=== PATIENT | male | born 1945 | race Caucasian/White ===

== ENCOUNTER 2016-07-31 10:47 | Emergency (ER) | payer MEDICARE ==
[2016-07-31 10:59] VITALS: TEMP 97.9; BMI 28.5
[2016-07-31 12:25] LABS: AUTOMATED BASOPHIL 0.4 % (0-2); AUTOMATED EOSINOPHIL 0.2 % (0-5); AUTOMATED LYMPH 8.4 % (17-44); AUTOMATED MONOCYTE 6.9 % (3-10); AUTOMATED NEUTROPHIL 84.1 % (45-76); MPV 8.7 fL (7.4-10.4)
[2016-07-31 12:33] LABS: LEUKOCYTES/URINE NEG (NEGATIVE); NITRITE/URINE NEG (NEGATIVE); RBC/URINE 0-2 (0-2); URINE OCCULT BLOOD NEG (NEG/TRACE)
[2016-07-31 12:35] LABS: BLOOD UREA NITROGEN 18 MG/DL (9-20); CALCIUM 9.5 MG/DL (8.4-10.2); CALCULATED OSMOLALITY 269 MOs/Kg (270-290); CHLORIDE 99 mEq/L (98-107); GLUCOSE 123 MG/DL (70-99); SODIUM LEVEL 138 mEq/L (137-146); TOTAL PROTEIN 8.6 G/DL (6.3-8.2)
--- NOTE | 2016-07-31 13:11 | EDPRACDOC ---
- General Information Chief Complaint: Male Urogenital Problems Stated Complaint: LOWER ABD PAIN Time Seen by Provider: 07/31/16 11:21 Information Source: Patient Home Medications: Home Medications Ascorbic Acid [Vitamin C] 1,000 mg PO DAILY 07/31/16 Aspirin (Enteric Coated) [Ecotrin] 81 mg PO DAILY 07/31/16 Multivitamin [One Daily] 1 tab PO DAILY 07/31/16 Pravastatin Sodium 20 mg PO QHS 07/31/16 Allergies/Adverse Reactions: Allergies Allergy/AdvReac Type Severity Reaction Status Date / Time No Known Allergies Allergy Unverified 07/31/16 12:21 - History of Present Illness HPI: C/o not being able to pee x 3 days except for a little dribbling. New onset, no blood noticed. No pain, just some pressure in pubic area. Denies fever, sob, cp , N/V/D, testicle or penis pain. Med hx = COPD, BPH Onset: 3 days Urinary Pain Location: Reports: Suprapubic Symptom Onset: Reports: Sudden Pain Severity: Moderate Pain Quality: Denies: Aching, N, Burning, Colicky, Cramping, Sharp, Stabbing, Knife-like, O History of: Reports: BPH Oral Intake: Normal Urinary Output: Decreased Associated Signs and Symptoms: Reports: None ED Past Medical History - History Reviewed Yes Nurses notes reviewed and agree except as marked - Patient Medical History Cardiac History: Reports: Hypercholesterolemia Psychological History: Denies: Depression - Social Medical History Smoking Status: Never smoker EDM Review of Systems - Review of Systems ROS Negative Except as Marked: Yes All systems reviewed and were negative except as marked Genitourinary: Dysuria - Physical Exam Constitutional: Alert Oriented to: Time, Person, Place Last recorded Vital Signs: Last Vital Signs Temp 97.9 F 07/31/16 10:54 Pulse 83 07/31/16 11:55 Resp 18 07/31/16 11:55 BP 146/68 07/31/16 11:55 Pulse Ox 94 07/31/16 11:55 Oxygen Pulse Oxygen Saturation 94 O2 Device Room Air Oxygen Flow Rate Fraction of Inspired Oxygen ( FIO2) - HEENT Head: Normal Eye Exam: negative: Conjunctival Injection, Scleral Icterus Oropharynx: negative: Drooling TMJ: Normal Nose: No Symptoms Reported Neck: Normal - Respiratory/Cardiovascular Respiratory: Normal - CTA Cardiovascular: Normal - GI Auscultation: Normal Palpation: Normal Tenderness: Mild, Suprapubic - Musculoskeletal Back: Normal Extremities: Normal - Integumentary Skin: Normal - Neurologic Mood Description: Normal Thought: Coherent - Re-evaluation Re-evaluation 1 Re-evaluation Time: 13:13 (feels better after cath, no current complaints) - Results 07/31/16 11:25 07/31/16 11:25 WBC 21.6 xk/uL (3.8-10.8) H 07/31/16 11:25 RBC 5.12 xM/uL (4.70-6.10) 07/31/16 11:25 Hgb 15.4 g/dL (14.0-18.0) 07/31/16 11:25 Hct 44.9 % (42-52) 07/31/16 11:25 MCV 88 fL (80-94) 07/31/16 11:25 MCH 30.1 pg (27-32) 07/31/16 11:25 MCHC 34.4 g/dl (33-36) 07/31/16 11:25 RDW 13.4 % (11.5-14.5) 07/31/16 11:25 Plt Count 338 xk/uL (130-400) 07/31/16 11:25 MPV 8.7 fL (7.4-10.4) 07/31/16 11:25 Sodium 138 mEq/L (137-146) 07/31/16 11:25 Potassium 3.8 mEq/L (3.5-5.1) 07/31/16 11:25 Chloride 99 mEq/L (98-107) 07/31/16 11:25 Carbon Dioxide 24 mMOL/L (22-33) 07/31/16 11:25 Anion Gap 19 mEq/L (8-16) H 07/31/16 11:25 BUN 18 MG/DL (9-20) 07/31/16 11:25 Creatinine 0.80 MG/DL (0.66-1.25) 07/31/16 11:25 Estimated GFR (MDRD) > 60 mL/min (>=60) 07/31/16 11:25 Glucose 123 MG/DL (70-99) H 07/31/16 11:25 Calculated Osmolality 269 MOs/Kg (270-290) L 07/31/16 11:25 Calcium 9.5 MG/DL (8.4-10.2) 07/31/16 11:25 Total Bilirubin 1.8 MG/DL (0.2-1.3) H 07/31/16 11:25 AST 40 IU/L (17-59) 07/31/16 11:25 ALT 52 IU/L (21-72) 07/31/16 11:25 Alkaline Phosphatase 117 IU/L (50-160) 07/31/16 11:25 Total Protein 8.6 G/DL (6.3-8.2) H 07/31/16 11:25 Albumin 4.5 G/DL (3.5-5.0) 07/31/16 11:25 Urine Color Yellow 07/31/16 12:10 Urine Clarity Cldy 07/31/16 12:10 Urine pH 6.0 (5.0-8.0) 07/31/16 12:10 Ur Specific [place] 1.020 (1.003-1.035) 07/31/16 12:10 Urine Protein 1+ (NEG/TRACE) H 07/31/16 12:10 Urine Glucose (UA) Neg (NEGATIVE) 07/31/16 12:10 Urine Ketones 1+ (NEGATIVE) H 07/31/16 12:10 Urine Occult Blood Neg (NEG/TRACE) 07/31/16 12:10 Urine Nitrite Neg (NEGATIVE) 07/31/16 12:10 Urine Bilirubin Neg (NEGATIVE) 07/31/16 12:10 Urine Urobilinogen <2.0 MG/DL (0-1) 07/31/16 12:10 Ur Leukocyte Esterase Neg (NEGATIVE) 07/31/16 12:10 Urine RBC 0-2 (0-2) 07/31/16 12:10 Urine WBC 10-20 (0-2) H 07/31/16 12:10 Ur Epithelial Cells Occ 07/31/16 12:10 Urine Bacteria Few (NEG/FEW) 07/31/16 12:10 Urine Mucus Sm amt (NEG/OCC) 07/31/16 12:10 Lab Results 07/31/16 07/31/16 07/31/16 12:10 11:25 11:25 WBC 21.6 H RBC 5.12 Hgb 15.4 Hct 44.9 MCV 88 MCH 30.1 MCHC 34.4 RDW 13.4 Plt Count 338 MPV 8.7 Sodium 138 Potassium 3.8 Chloride 99 Carbon Dioxide 24 Anion Gap 19 H BUN 18 Creatinine 0.80 Estimated GFR (MDRD) > 60 Glucose 123 H Calculated Osmolality 269 L Calcium 9.5 Total Bilirubin 1.8 H AST 40 ALT 52 Alkaline Phosphatase 117 Total Protein 8.6 H Albumin 4.5 Urine Color Yellow Urine Clarity Cldy Urine pH 6.0 Ur Specific [place] 1.020 Urine Protein 1+ H Urine Glucose (UA) Neg Urine Ketones 1+ H Urine Occult Blood Neg Urine Nitrite Neg Urine Bilirubin Neg Urine Urobilinogen <2.0 Ur Leukocyte Esterase Neg Urine RBC 0-2 Urine WBC 10-20 H Ur Epithelial Cells Occ Urine Bacteria Few Urine Mucus Sm amt Decision Time to Discharge: 13:13 - Departure Disposition: Home Condition: Stable Final Diagnosis: Urinary retention Instructions: Todd Catheter Placement and Care (ED), Urinary Retention in Men (ED) Education/Counseling Given To: Patient Education/Counseling Given Regarding: Diagnosis, Treatment, Prognosis, Follow Up Referrals: Severo Anderson II, MD [Primary Care Provider] - One Week Santi Payne MD [Staff Physician] - One Week Additional Instructions: Keep todd in place and follow up with urologist. The name of one has been provided. Return to ED for any new or worsening symptoms.
[2016-07-31 13:45] VITALS: BP 159/70; PULSE 86
== END 2016-07-31 13:40 | disposition home or self-care (01) ==
LOC: ED 10:47
DX: R33.9 Retention of urine, unspecified (principal); R10.30 Lower abdominal pain, unspecified
CPT/HCPCS: 36415; 51702; 80053; 81001; 85025; 87077; 87086; 87186; 99284